=== PATIENT | female | born 1990 | race Caucasian/White ===

== ENCOUNTER 2023-02-12 12:33 | Day surgery (SDC) | payer BC ==
[~2023-02-12] VITALS: Ht 172.7 cm; Wt 120.0 kg
[2023-02-12] VITALS (7 sets, daily range): BP systolic 109–148; BP diastolic 55–93
[~2023-02-12 12:33] MED LIST: OXYC5 PO
--- NOTE | 2023-02-12 14:00 | NUR ---
Patient up to Ambulate independently. Gait steady. Surgical site prepped with 2% Chlorhexidine cloth wipe. History, Chart, Medications and Allergies reviewed before start of procedure. Lungs clear T/O to Auscultation. Patient confirms NPO status and agrees with scheduled surgery. Pre-Op teaching done. Pt verbalizes understanding. Patient States Post-Procedure ride home has been arranged.
--- NOTE | 2023-02-12 18:26 | NUR ---
Patient up to Ambulate independently. Gait steady. ABLE TO URINATED AND WALK FROM BATHROOM BACK TO [facility]. Discharge instructions reviewed with patient. Patient verbalizes understanding. Copy given to patient to take home. RN ASSISTED PT TO GET DRESSED WELL PLACE LEFT SHOUDLER/ARM IN [place]ING. BELONGINGS INCLUDING PHONE RETURNED TO PATIENT. Discharged via wheelchair to private car for ride home.
== END 2023-02-12 18:29 | disposition home or self-care (01) ==
LOC: ORSCMMR 12:33 → ORD 15:00 → ORSCMMR 15:00
PROVIDERS: Orthopaedic Surgery
PROC: 0PSD04Z Reposition Left Humeral Head with Internal Fixation Device, Open Approach (ICD-10-PCS; principal; 2023-02-12 14:30)
DX: S42.252A Displaced fracture of greater tuberosity of left humerus, initial encounter for closed fracture (principal); W17.89XA Other fall from one level to another, initial encounter; F17.210 Nicotine dependence, cigarettes, uncomplicated; E66.01 Morbid (severe) obesity due to excess calories; Z68.41 Body mass index [BMI] 40.0-44.9, adult
CPT/HCPCS: 84703; A9270; J0171; J0690; J3010; J7120